=== PATIENT | male | born 1965 | race Caucasian/White ===

== ENCOUNTER 2017-06-10 19:06 | Emergency (ER) | payer BC ==
[~2017-06-10] VITALS: Ht 162.6 cm; Wt 99.7 kg
[2017-06-10 19:18] VITALS: TEMP 37.4; Ht 162.6 cm; Wt 99.7 kg
[2017-06-10] MEDS ORDERED: BUPIVACAINE 0.5 % 5 MG/1 ML MPF 30ML VIAL INFIL ONE (19:45)
[2017-06-10] MEDS ORDERED: XYLOCAINE 1%/SOD BICARB 20 ML VIAL INFIL ONE (19:45)
--- NOTE | 2017-06-10 20:01 | DIAGNOSTIC IMAGING REPORT ---
RIGHT INDEX FINGER 3 VIEWS CLINICAL HISTORY: Pain status post trauma COMPARISON: None. DISCUSSION: There is an acute fracture involving the distal phalanx of the index finger with an overlying soft tissue injury project appears to extend to or near the level of the bone. THERE IS NO EVIDENCE FOR SOFT TISSUE SWELLING. IMPRESSION: Acute fracture of the distal phalanx with an overlying soft tissue injury Electronically signed by: Brandon Salas M.D. 06/10/2017 8:00 PM Dictated Date/Time: 06/10/2017 7:59 PM
[2017-06-10] MEDS ORDERED: CEPHALEXIN 500MG HOME PACK 1 EA BTL PO ONE (20:15)
[2017-06-10] MEDS ORDERED: CEFAZOLIN SOD 1 GM VIAL IM ONE (20:15)
[2017-06-10] MEDS ORDERED: CEFAZOLIN IM SCH (21:00)
[2017-06-10] MEDS ORDERED: CEPH500C2 PO (21:21)
--- NOTE | 2017-06-10 21:22 | EMERGENCY ROOM VISIT NOTE ---
ED Visit Note First contact with patient: 19:26 CHIEF COMPLAINT: Right second finger laceration this evening HISTORY OF PRESENT ILLNESS: Patient is a left-hand dominant 51-year-old white male who presents the emergency department for evaluation of a laceration to the tip of the right second finger that he sustained at home just prior to arrival. He was using an electric prefabricated houses trimmer, when he accidentally struck the finger, causing the laceration described below. He notes a "numb," throbbing pain that he rates a 4/10. Bleeding was controlled with pressure. He denies any weakness in the finger. REVIEW OF SYSTEMS: Review of systems as per HPI. All other systems reviewed were negative. At least 6 systems reviewed. PMH: Electronic medical records are reviewed and summarized as above/below. See Problem List. Tetanus is up-to-date. SOCIAL HISTORY: Patient lives at home. Denies tobacco use, drinks alcohol socially. PHYSICAL EXAM: Vital Signs: Reviewed Nurse's notes. There is a jagged, irregular laceration on the radial aspect of the right second finger, starting in the midportion of the finger pad, and extending through the proximal, radial corner of the nail. Laceration measures 2.5 cm in length. The edges gape apart with traction. There is no foreign material in the wound and it looks clean. There is no bleeding. No deep structures such as tendons or nerves are seen in the base of the wound. Extension and flexion of the finger is full and strong. Sensation to light touch is grossly intact. EMERGENCY DEPARTMENT COURSE: X-rays of the right second finger were obtained, and consistent with a acute fracture of the distal phalanx. The patient declined analgesia prior to procedure. Using sterile technique, a digital block was performed using a 2:1 solution of 1 % plain buffered lidocaine and 0.5% Sensorcaine. When adequate anesthesia was obtained, the finger was scrubbed thoroughly with Betadine, and laceration was irrigated copiously with normal saline solution. Laceration was repaired with 10, 5-0 nylon sutures. Patient tolerated the procedure well. A metal finger splint was applied for protection. Patient was given Ancef 1 g IM. He was given a Percocet and Keflex home pack. Due to the open fracture, the patient was encouraged to follow-up with orthopedics. He was counseled at length regarding signs of infection. Differential diagnoses entertained included fracture, laceration, soft tissue avulsion, foreign body, tip amputation, among others. Medication reconciliation: I attest that I have personally reviewed the patient' s current medication list. Blood pressure screening : Patient was found to have normal blood pressure on screening and does not require follow-up. RIGHT INDEX FINGER 3 VIEWS CLINICAL HISTORY: Pain status post trauma COMPARISON: None. DISCUSSION: There is an acute fracture involving the distal phalanx of the index finger with an overlying soft tissue injury project appears to extend to or near the level of the bone. THERE IS NO EVIDENCE FOR SOFT TISSUE SWELLING. IMPRESSION: Acute fracture of the distal phalanx with an overlying soft tissue injury Problem List Medical Problems: (1) Diverticulitis Status: Resolved (2) Diverticulitis Status: Resolved (3) Diverticulosis Status: Chronic (4) Fever Status: Resolved (5) Kidney stones Status: Resolved (6) Leukocytosis Status: Resolved (7) Ureteral calculi Status: Resolved Surgical Problems: (1) History of eye surgery Status: Resolved Current/Historical Medications Scheduled Cephalexin Monohydrate (Keflex), 500 MG PO QID Allergies Coded Allergies: Piperacillin (Verified Allergy, Mild, RASH, 06/10/17) Tazobactam (Verified Allergy, Mild, RASH, 06/10/17) Vital Signs Date Time Temp Pulse Resp B/P (MAP) Pulse Ox O2 Delivery O2 Flow Rate FiO2 06/10/17 21:53 80 20 132/92 95 06/10/17 19:18 37.4 78 18 116/75 95 Room Air Medications Administered Medications (Trade) Dose Ordered Sig/Kaleb Route Start Time Stop Time Status Last Admin Dose Admin Cephalexin Monohydrate (Keflex 500MG Home Pack) 1 homepack NOW ONCE PO 06/10/17 20:15 06/10/17 20:16 DC 06/10/17 21:53 1 HOMEPACK Cefazolin Sodium 1000 mg/Syringe 3.003 ml @ 10 mls/sec 2100 IM 06/10/17 21:00 06/10/17 22:29 DC 06/10/17 21:25 10 MLS/SEC Oxycodone/ Acetaminophen (Percocet 5/ 325MG Home Pack) 1 homepack UD ONCE PO 06/10/17 21:30 06/10/17 21:31 DC 06/10/17 21:53 1 HOMEPACK Departure Information Impression Primary Impression: Open fracture of tuft of distal phalanx of finger Additional Impression: Finger laceration Prescriptions Cephalexin Monohydrate (KEFLEX) 500 Mg Cap 500 MG PO QID, #40 CAP Prov: Mona Glasgow PA 06/10/17 Referrals No Doctor, Assigned (PCP) Patient Instructions [facility] Additional Instructions Keep wound clean and dry. Do not allow any crusting or dried blood to accumulate on sutures. Clean gently with mild soap and water. May also cleanse with a 1:1 solution of hydrogen peroxide and water and a Q-tip. Use an antibiotic ointment for 3-4 days, then let wound dry. Suture removal in 12-14 days. Return sooner for any signs of infection (increasing redness, swelling, drainage). Ice and elevate for swelling and pain. Ibuprofen(Motrin, Advil) may be used for fever or pain. Use 600mg every six hours as needed. Take with food. Avoid using more than 2400mg in a 24 hour period. Do not use 2400mg per day for more than three consecutive days without physician direction. Prolonged inappropriate use can lead to stomach upset or ulcers. (AND/OR) Acetaminophen(Tylenol) may be used for fever or pain. Use 1000mg every six hours as needed. Avoid using more than 3000mg in a 24 hour period. Percocet 5/325 mg: Take 1-2 pills every four hours for breakthrough pain. Avoid alcohol, operating machinery or dangerous equipment, working on ladders or roofs, DRIVING, or situations where being under the influence may be dangerous. It is recommended to use an [id number] stool softener such as Colace, 100mg twice daily while taking this medication to avoid constipation. Cephalexin(Keflex) 500mg: Take one pill four times daily for 10 days to prevent infection. All antibiotics can cause diarrhea. If this occurs and you feel worse or it does not resolve in 1-2 days follow up with your doctor or return to the Emergency Department as this could be signs of serious underlying problems. Any medication can cause an allergic reaction, stop the pills immediately and return to the ER for rash, hives, breathing difficulties, or swelling. Problem Qualifiers Additional Impression: Finger laceration Encounter type: initial encounter Finger: index finger Damage to nail status: with damage Foreign body presence: without foreign body Laterality: right Qualified Codes: S61.310A - Laceration without foreign body of right index finger with damage to nail, initial encounter
[2017-06-10] MEDS ORDERED: PERCOCET HOME PACK PO ONE (21:30)
[2017-06-10 21:53] VITALS: BP 132/92; PULSE 80; O2SAT 95
== END 2017-06-10 21:15 | disposition home or self-care (01) ==
LOC: C.EDB 19:08 → C.EDD 21:15
DX: S62.660B Nondisplaced fracture of distal phalanx of right index finger, initial encounter for open fracture (principal); S61.310A Laceration without foreign body of right index finger with damage to nail, initial encounter; W29.3XXA Contact with powered garden and outdoor hand tools and machinery, initial encounter; Y92.017 Garden or yard in single-family (private) house as the place of occurrence of the external cause; K57.90 Diverticulosis of intestine, part unspecified, without perforation or abscess without bleeding

== ENCOUNTER 2017-06-23 14:50 | Emergency (ER) | payer BC ==
[~2017-06-23] VITALS: Ht 271.8 cm; Wt 100.1 kg
[~2017-06-23 14:50] MED LIST: CEPH500C2 PO
[2017-06-23 14:58] VITALS: BP 136/78; PULSE 78; TEMP 37; O2SAT 95; Ht 271.8 cm; Wt 100.1 kg
--- NOTE | 2017-06-23 15:14 | EMERGENCY ROOM VISIT NOTE ---
History First contact with patient: 15:02 Chief Complaint: SUTURE/STAPLE REMOVAL Stated Complaint: REMOVE STICHES Nursing Triage Summary: patient states he is here for future removal to right index finger. area well approximated, no drainage noted. History of Present Illness The patient is a 51 year old male who presents to the Emergency Room for suture removal from a right index finger laceration that was repaired in our facility 13 days ago. Other than residual numbness of the fingertip, the patient denies any other wound complications. Review of Systems Noncontributory Past Medical/Surgical History Medical Problems: (1) Diverticulitis (2) Diverticulitis (3) Diverticulosis (4) Fever (5) Kidney stones (6) Leukocytosis (7) Ureteral calculi Surgical Problems: (1) History of eye surgery Family History Patient reports no known family medical history. Social History Smoking Status: Never Smoker Alcohol Use: none Drug Use: none Marital Status: Occupation Status: employed Current/Historical Medications Scheduled Cephalexin Monohydrate (Keflex), 500 MG PO QID Physical Exam Vital Signs Date Time Temp Pulse Resp B/P (MAP) Pulse Ox O2 Delivery O2 Flow Rate FiO2 06/23/17 14:58 37.0 78 18 136/78 95 Room Air Physical Exam MUSCULOSKELETAL: Examination of the right index fingertip shows a well-healed laceration. All sutures are intact. No erythema, fluctuance, drainage or diastases. All sutures were removed without any complications. NEUROLOGIC: The patient does have decreased 2 point discrimination of the fingertip with increased sensation over the ulnar aspect of the distal finger. Medical Decision & Procedures ED Course The patient was provided additional verbal wound care instructions regarding wound care and avoiding any undue stress on the wound. Medical Decision Blood Pressure Screening Patient's blood pressure: Normal blood pressure Impression Primary Impression: Encounter for removal of sutures Additional Impression: Laceration of right index finger Departure Information Referrals No Doctor, Assigned (PCP) Patient Instructions [facility] Problem Qualifiers Additional Impression: Laceration of right index finger Encounter type: subsequent encounter Damage to nail status: without damage Foreign body presence: without foreign body Qualified Codes: S61.210D - Laceration without foreign body of right index finger without damage to nail, subsequent encounter
== END 2017-06-23 15:20 | disposition home or self-care (01) ==
LOC: C.EDB 14:51 → C.EDD 15:20
DX: S61.210D Laceration without foreign body of right index finger without damage to nail, subsequent encounter (principal); X58.XXXD Exposure to other specified factors, subsequent encounter